=== PATIENT | female | born 1995 | race Two or more races ===

== ENCOUNTER 2019-12-08 22:27 | Emergency (ER) | payer MEDICAID, OTHER ==
[~2019-12-08] VITALS: Ht 157.5 cm; Wt 75.0 kg
[2019-12-08] MEDS ORDERED: SODIUM CHLORIDE 0.9% 1,000 ML IV ONE (22:49)
[2019-12-08] MEDS ORDERED: ONDANSETRON HCL 4MG/2ML INJ IV STA (22:49)
[2019-12-08] MEDS ORDERED: LORAZEPAM 0.5MG TABLET PO ONE (23:00)
[2019-12-08 23:03] LABS: BASOPHILS % 0.5 % (0.0-2.0); EOSINOPHILS % 1.3 % (0.0-5.0); HEMATOCRIT. 38.7 % (36.0-48.0); HEMOGLOBIN. 12.8 g/dL (12.0-16.0); LYMPHOCYTES % 41.4 % (20.0-50.0); MEAN CORPUSCULAR VOLUME 84.7 fL (81.0-99.0); MEAN PLATELET VOLUME 8.1 fl (7.4-10.4); MONOCYTES % 5.2 % (2.0-8.0); NEUTROPHILS % 51.6 % (40.0-76.0); PLATELET 359 x1000/uL (130-400); RED BLOOD CELL COUNT 4.57 mill/uL (4.2-5.4); RED CELL DISTRIBUTION WIDTH 14.6 % (11.6-14.6)
[2019-12-08 23:07] LABS: CHLORIDE 106 mEq/L (98-107)
[2019-12-08 23:11] LABS: ETHANOL BLOOD < 10 mg/dL
[2019-12-09 01:33] VITALS: BP 113/68
== END 2019-12-09 01:45 | disposition home or self-care (01) ==
LOC: ER 22:27
DX: T40.7X1A Poisoning by cannabis (derivatives), accidental (unintentional), initial encounter (principal); Y92.89 Other specified places as the place of occurrence of the external cause; R00.2 Palpitations; F12.10 Cannabis abuse, uncomplicated; F17.290 Nicotine dependence, other tobacco product, uncomplicated; F15.10 Other stimulant abuse, uncomplicated; Z88.0 Allergy status to penicillin
CPT/HCPCS: 36415; 80053; 80320; 83690; 85025; 93005; 96374; 99284; J2405; J7030; G0480